=== PATIENT | male | born 1960 | race Caucasian/White ===

== ENCOUNTER 2023-05-08 12:02 | Emergency (ER) | payer OTHER, SELFPAY ==
[2023-05-08] VITALS (44 sets, daily range): BP systolic 130–220; BP diastolic 67–101; PULSE 55–74; RESP 10–26; TEMP 36.6; O2SAT 92–100; BMI 26.9
--- NOTE | 2023-05-08 12:15 | DI.RAD.S_ITS ---
PROCEDURE: XR CHEST 1V INDICATIONS: chest pain TECHNIQUE: One view of the chest was acquired. COMPARISON: [facility], , CHEST 1 VIEW, 12/22/2014, 15:28. FINDINGS: Surgical changes and devices: None. Lungs and pleura: Lungs are clear. No pleural effusions or pneumothorax. Mediastinum: Mediastinal contours appear normal. Heart size is normal. Bones and chest wall: No suspicious bony lesions. Overlying soft tissues appear unremarkable. IMPRESSION: No acute cardiopulmonary process. Dictated by: Varinder Agudelo M.D. on 05/08/2023 at 13:40 Approved by: Varinder Agudelo M.D. on 05/08/2023 at 13:40
[2023-05-08] MEDS: ASPIRIN 81 MG CHEW TAB 324 MG PO (12:24)
[2023-05-08 12:35] LABS: INR 1.2 (0.9-1.3); Prothrombin Time 13.6 SECONDS (10.1-12.7)
[2023-05-08 12:38] LABS: PTT Partial Thromboplastin Tim 28 SECONDS (26-36)
[2023-05-08 12:42] LABS: Add Manual Diff / Slide Review NO; Basophils Absolute Auto 100 /uL (0-100); Basophils Percent Auto 0.9 % (0-2); Eosinophils Absolute Auto 100 /uL (0-450); Eosinophils Percent Auto 1.2 % (2-4); Hematocrit 44.9 % (41-53); Hemoglobin 15.6 g/dL (13.5-17.5); Lymphocytes Absolute Auto 1300 /uL (1100-4500); Lymphocytes Percent Auto 15.5 % (25-40); Mean Corpuscular HGB Conc 34.7 % (30-36); Mean Corpuscular Hemoglobin 31.7 PG (26-34); Mean Corpuscular Volume 91.4 fL (80-100); Monocytes Absolute Auto 700 /uL (0-900); Monocytes Percent Auto 8.2 % (3-14); Neutrophils Absolute Auto 6300 /uL (1500-7000); Neutrophils Percent Auto 74.2 % (50-75); Platelet Count 37 X10^3/uL (150-400); Red Blood Cell Count 4.91 X10^6/uL (4.5-5.9); Red Cell Distribution Width 13.3 % (11.6-14.8); White Blood Cell Count 8.5 X10^3/uL (4.5-11.0)
[2023-05-08 12:48] LABS: Alanine Aminotransferase 34 IU/L (<50); Albumin 4.7 g/dL (3.5-5.0); Albumin Globulin Ratio 1.6 (1.0-2.8); Alkaline Phosphatase 61 U/L (38-126); Aspartate Aminotransferase 33 IU/L (17-59); BUN Creatinine Ratio 18.9 (6-22); Bilirubin Total 1.4 mg/dL (0.2-1.3); Blood Urea Nitrogen 18 mg/dL (9-20); Calcium 9.4 mg/dL (8.4-10.2); Carbon Dioxide 26 mmol/L (22-32); Chloride 103 mmol/L (98-107); Creatine Kinase 59 U/L (55-170); Estimated Glomerular Filt Rate > 60 mL/min (>60); Glucose 97 mg/dL (80-110); HEMOLYSIS 18 (0-50); Lipase 107 U/L (23-300); Magnesium 2.2 mg/dL (1.6-2.3); Potassium 4.3 mmol/L (3.4-5.1); Sodium 139 mmol/L (137-145); Total Protein 7.7 g/dL (6.3-8.2)
--- NOTE | 2023-05-08 12:51 | ED.CHESTPAIN ---
HPI - Chest Pain General Chief Complaint: Chest Pain Stated Complaint: chest pains Time Seen by Provider: 05/08/23 12:20 Source: patient and family Mode of arrival: Ambulatory History of Present Illness HPI narrative: 63-year-old male with history of coronary artery disease, hyperlipidemia, gout presents for 1 month of gradually worsening substernal chest pains. Patient has history of VFib arrest with LAD stenting in 2015, however he states he is not seen cardiology since 2019. For the last month his chest pains have mostly been associated with exertion, however on at least 2 occasions that have woken him up from sleep at night. He has been taking nitroglycerin, 2-3 tablets at a time. He was supposed to have an appointment with his primary care physician later this afternoon, however when he called them for a question on medications they sent him to the ER for cardiac evaluation. Currently chest pain free. Related Data Home Medications Medication Instructions Recorded Confirmed allopurinol 300 mg tablet 300 mg PO DAILY 05/08/23 05/08/23 aspirin 81 mg tablet 81 mg PO DAILY 05/08/23 05/08/23 atorvastatin 40 mg tablet 40 mg PO DAILY 05/08/23 05/08/23 lisinopril 20 mg tablet 20 mg PO DAILY 05/08/23 05/08/23 metoprolol succinate 100 mg 100 mg PO DAILY 05/08/23 05/08/23 tablet,extended release 24 hr nitroglycerin 0.4 mg sublingual See Rx Instructions .Route .COMPLEX 05/08/23 05/08/23 tablet Allergies Allergy/AdvReac Type Severity Reaction Status Date / Time No Known Drug Allergies Allergy Verified 05/08/23 13:31 Review of Systems Constitutional Constitutional: Reports system reviewed and no additional complaints, except as documented Cardiovascular Cardiovascular: Reports chest pain, Reports chest pain at rest, Reports chest pain with activity, Denies diaphoresis, Denies syncope and Reports dyspnea on exertion Respiratory Respiratory: Denies change in phlegm color, Denies chest congestion, Denies pain on inspiration, Denies pain with cough and Reports dyspnea on exertion Neurologic Neurologic: Denies syncope Patient History Medical History (Updated 05/08/23 @ 15:04 by Jayne Reis MD) Gout High cholesterol Hypertension Social History Smoking Status: Never smoker Smoking Status: Never smoker alcohol intake frequency: 0-2 drinks per day Substance Use Type: does not use Exam Initial Vital Signs Initial Vital Signs: Vital Signs Temperature 97.8 F 05/08/23 12:05 Pulse Rate 68 05/08/23 12:05 Respiratory Rate 16 05/08/23 12:05 Blood Pressure 146/76 H 05/08/23 12:05 Pulse Oximetry 96 05/08/23 12:05 Oxygen Delivery Method Room Air 05/08/23 12:05 Const: Well-nourished, Well-developed, appears stated age Eyes: PERRL, EOMI, conjunctiva normal ENT: Atraumatic, dentition normal, mucous membranes moist Cardiac: regular rate, regular rhythm RESP: unlabored, clear bilaterally, no wheezing GI: Atraumatic, nontender, nondistended, no rebound, no guarding MSK: Atraumatic, full range of motion, pulses equal Skin: Warm, Dry, intact, no rashes Neuro: AO x3, CN II-XII grossly intact, moves all extremities Psych: affect normal, mood normal, not suicidal, not homicidal Scores HEART Score Heart Score history: Highly Suspicious Heart Score EKG: Normal Heart Score Age: 45-64 years old Heart Score risk factors: > 3 risk factors or hx of atherosclerotic disease Heart Score troponin: < or = to normal limit Heart Score Total: 5 Course Course Course Narrative: Patient with known history of coronary disease presenting for chest pain both on exertion and at rest. EKG is normal sinus rhythm without obvious ischemia, however the fact that the patient is having chest pain that wakes him from sleep is highly concerning. Laboratory work is reviewed, troponin is undetectable. Incidental finding of thrombocytopenia of uncertain significance. Patient had brief episode of chest pain while in the emergency department, however repeat EKG is unchanged, chest pain resolved at the time nitroglycerin was available for administration. Patient's case discussed with on-call certified master locksmith Dr. Cates, who agreed that the patient's history is highly concerning and since he is not had a coronary workup in at least 4 years he should be transferred to a facility with Interventional Cardiology for possible catheterization. Discussed with patient and at bedside, who were in agreement with transfer at this time. Orders Ordered: ED Orders 05/08/23 12:15 XR chest 1V Stat EKG-12 Lead Stat 05/08/23 12:20 Complete Blood Count AUTO DIFF Stat Comprehensive Metabolic Panel Stat Lipase Stat Magnesium Stat PTT Partial Thromboplastin Fabian Stat Prothrombin Time INR Stat Troponin & CK Cardiac Panel Stat Nitroglycerin (Nitroglycerin 0.4 Mg Sl Tab) 0.4 mg SL [id number] PRN PRN Reason: Chest Pain Discontinued Medications Aspirin (Aspirin 81 Mg Chew Tab) 324 mg PO NOW ONE Stop: 05/08/23 12:16 Last Admin: 05/08/23 12:24 Dose: 243 mg Documented By: STEPHEN Vital Signs Vital signs: Vital Signs - 8 hr 05/08/23 12:05 05/08/23 12:12 05/08/23 12:13 Temperature 97.8 F Pulse Rate 68 66 Respiratory Rate 16 Blood Pressure 146/76 H 172/82 H Pulse Oximetry 96 98 Oxygen Delivery Method Room Air 05/08/23 12:13 05/08/23 12:30 05/08/23 12:30 Temperature Pulse Rate 64 61 Respiratory Rate 19 12 Blood Pressure 152/77 H Pulse Oximetry 98 99 Oxygen Delivery Method 05/08/23 13:00 05/08/23 13:00 05/08/23 13:30 Temperature Pulse Rate 72 Respiratory Rate 26 H Blood Pressure 161/87 H 151/82 H Pulse Oximetry 97 Oxygen Delivery Method 05/08/23 13:30 05/08/23 14:00 05/08/23 14:00 Temperature Pulse Rate 62 60 Respiratory Rate 22 15 Blood Pressure 154/74 H Pulse Oximetry 99 99 Oxygen Delivery Method 05/08/23 14:15 05/08/23 14:15 05/08/23 14:30 Temperature Pulse Rate 59 L Respiratory Rate 10 L Blood Pressure 152/72 H 150/77 H Pulse Oximetry 97 Oxygen Delivery Method 05/08/23 14:30 Temperature Pulse Rate 59 L Respiratory Rate 15 Blood Pressure Pulse Oximetry 98 Oxygen Delivery Method MDM - Chest Pain Differential Diagnosis Differential diagnosis: Likely stable angina, unstable angina pectoris and atypical chest pain Lab Data 05/08/23 12:20 05/08/23 12:20 Labs: Lab Results 05/08/23 05/08/23 05/08/23 Range/Units 12:20 12:20 12:20 WBC 8.5 (4.5-11.0) X10^3/uL RBC 4.91 (4.5-5.9) X10^6/uL Hgb 15.6 (13.5-17.5) g/dL Hct 44.9 (41-53) % MCV 91.4 (80-100) fL MCH 31.7 (26-34) PG MCHC 34.7 (30-36) % RDW 13.3 (11.6-14.8) % Plt Count 37 L (150-400) X10^3/uL Neut % (Auto) 74.2 (50-75) % Lymph % (Auto) 15.5 L (25-40) % Trigg % (Auto) 8.2 (3-14) % Eos % (Auto) 1.2 L (2-4) % Baso % (Auto) 0.9 (0-2) % Neut # (Auto) 6300 (9028-7582) /uL Lymph # (Auto) 1300 (0809-7535) /uL Trigg # (Auto) 700 (0-900) /uL Eos # (Auto) 100 (0-450) /uL Baso # (Auto) 100 (0-100) /uL Platelet Estimate Decr RBC Morphology Normal morphology PT 13.6 H (10.1-12.7) SECONDS INR 1.2 (0.9-1.3) APTT 28 (26-36) SECONDS Sodium 139 (137-145) mmol/L Potassium 4.3 (3.4-5.1) mmol/L Chloride 103 (98-107) mmol/L Carbon Dioxide 26 (22-32) mmol/L BUN 18 (9-20) mg/dL Creatinine 0.95 (0.66-1.25) mg/dL Estimated GFR > 60 (>60) mL/min BUN/Creatinine Ratio 18.9 (6-22) Glucose 97 (80-110) mg/dL Calcium 9.4 (8.4-10.2) mg/dL Magnesium 2.2 (1.6-2.3) mg/dL Total Bilirubin 1.4 H (0.2-1.3) mg/dL AST 33 (17-59) IU/L ALT 34 (<50) IU/L Alkaline Phosphatase 61 (38-126) U/L Total Creatine Kinase 59 (55-170) U/L Troponin I < 0.012 (0.01-0.034) ng/mL Total Protein 7.7 (6.3-8.2) g/dL Albumin 4.7 (3.5-5.0) g/dL Globulin 3.0 (1.7-4.1) g/dL Albumin/Globulin Ratio 1.6 (1.0-2.8) Lipase 107 (23-300) U/L Imaging Data Chest x-ray: My Impression: Normal ECG Data Interpretation: Normal sinus rhythm at 63 beats per minute. No STEMI Treatment and disposition Social Determinants of Health that impact treatment or disposition: none Shared decision making:: with and patient Discharge Plan Departure Patient Disposition: [facility] Clinical Impression: Angina pectoris, unstable Chest pain Qualifiers: Chest pain type: unspecified Qualified Code(s): R07.9 - Chest pain, unspecified Prescriptions: No Action atorvastatin 40 mg tablet 40 mg PO DAILY lisinopril 20 mg tablet 20 mg PO DAILY metoprolol succinate 100 mg tablet extended release 24 hr 100 mg PO DAILY nitroglycerin 0.4 mg tablet, sublingual See Rx Instructions .ROUTE .COMPLEX Rx Instructions: 0.4 tab sublingual q 5 min max of 3 for chest pain. allopurinol 300 mg tablet 300 mg PO DAILY aspirin 81 mg Tablet 81 mg PO DAILY Referrals: Catrina Valdez ARNP [Primary Care Provider] -
[2023-05-08 12:59] LABS: Troponin I < 0.012 ng/mL (0.01-0.034)
[2023-05-08 13:03] LABS: RBC Morphology Normal Morphology
[2023-05-08 13:04] LABS: Platelet Estimate Decr
--- NOTE | 2023-05-08 13:59 | PC.NURSE ---
Patient stated that he was having repeat chest pain. This RN notified provider and provider ordered PRN Nitroglyerin. Patient stated that his pain was 5/10. Provider asked for a EKG which was performed. This RN went to pull medication and patient verified. Then upon this RN bringing the medication to this patient he no longer has any pain. Administration record undone due to this. Medication bottle labeled and placed in daily lockbox in medication room.
[2023-05-08 18:51] LABS: Creatine Kinase 46 U/L (55-170)
[2023-05-08 19:03] LABS: Troponin I < 0.012 ng/mL (0.01-0.034)
--- NOTE | 2023-05-08 21:50 | PC.NURSE ---
pt's given recliner and linen, lights dimmed for comfort, pt denies any c/o at this time
[2023-05-09] VITALS (9 sets, daily range): BP systolic 127–146; BP diastolic 69–85; PULSE 51–55; RESP 12–21; O2SAT 95–100
== END 2023-05-09 03:53 | disposition short-term general hospital (02) ==
PROVIDERS: Emergency Medicine; Emergency Provider Emergency Medicine; PCP Nurse Practitioner Family
DX: I20.0 Unstable angina (principal)
CPT/HCPCS: 36415; 71045; 80053; 82550; 83690; 83735; 84484; 85025; 85610; 85730; 93005; 99284